=== PATIENT | female | born 1975 | race Caucasian/White ===

== ENCOUNTER 2016-10-14 14:39 | Outpatient (CLI) | payer OTHER ==
--- NOTE | 2016-10-14 15:17 | DIAGNOSTIC IMAGING REPORT ---
PROCEDURE: MG BILATERAL SCREENING W/CAD INDICATION: Screening. Baseline. Family history breast carcinoma (mother). TECHNIQUE: Bilateral CC and MLO digital views. COMPARISON: None. FINDINGS: Computer-aided detection applied. Mildly dense with a few dystrophic calcifications. IMPRESSION: 1. Negative mammogram. RESULT CODE: 1- Negative. A. A negative report should not delay biopsy if a dominant or clinically suspicious mass is present. 10-15% of cancers are not identified by x-ray. B. A negative report may reinforce clinical impression. C. Adenosis and dense breasts may obscure an underlying neoplasm. D. False positive reports average 6-10%. E.. A yearly screening mammogram is recommended. A reminder letter will be scheduled.
== END 2016-10-14 23:00 ==
LOC: MAM SRH 14:39
DX: Z12.31 Encounter for screening mammogram for malignant neoplasm of breast (principal); Z80.3 Family history of malignant neoplasm of breast

== ENCOUNTER 2016-11-24 13:49 | Outpatient (CLI) | payer OTHER ==
--- NOTE | 2016-11-24 14:28 | DIAGNOSTIC IMAGING REPORT ---
PROCEDURE: XR KNEE 4 VIEWS - LEFT INDICATION: LEFT HIP PX/LEFT KNEE PX TECHNIQUE: Four views. COMPARISON: None. FINDINGS: Chondrocalcinosis. Osteoarthritis with joint space narrowing and osteophyte formation. IMPRESSION: 1. Chondrocalcinosis. Osteoarthritis.
--- NOTE | 2016-11-24 14:29 | DIAGNOSTIC IMAGING REPORT ---
PROCEDURE: XR HIP 2VW W W/O AP PELVIS-LT INDICATION: LEFT HIP PX TECHNIQUE: AP view of the pelvis and hips with lateral view of the left hip. COMPARISON: None. FINDINGS: Left HIP: Osseous structures and joint spaces are normal. PELVIS: Osseous pelvis is normal. IMPRESSION: 1. Negative pelvis and left hip.
== END 2016-11-24 23:00 ==
LOC: XR SRH 13:49
DX: M25.552 Pain in left hip (principal); M11.262 Other chondrocalcinosis, left knee

== ENCOUNTER 2016-12-13 19:37 | Emergency (ER) | payer OTHER ==
--- NOTE | 2016-12-13 20:46 | DIAGNOSTIC IMAGING REPORT ---
PROCEDURE: XR CHEST 2 VIEW INDICATION: SHORTNESS OF BREATH TECHNIQUE: Two views. COMPARISON: None. FINDINGS: The cardiomediastinal contour is stable, within normal limits. The central vasculature is not congested. Asymmetric right hemidiaphragm elevation, chronic. Interval clearance of right upper and middle lobe opacities. The lungs are clear without focal consolidation, pleural effusion or pneumothorax. The visualized osseous structures are intact. IMPRESSION: 1. No evidence of acute cardiopulmonary disease. 2. Chronic minor right hemithorax volume loss and interval clearance of prior pneumonia.
--- NOTE | 2016-12-13 21:15 | ED NURSING NOTES ---
Clinical Report - Nurses [facility] [address] [place] [address] 12/13/2016 19:38 Patient: ASHISH VAZQUEZ V TRIAGE Triage time 19:41. Acuity: LEVEL 3. Chief Complaint: SHORTNESS OF BREATH and "ASTHMA ATTACK". Alert. --19:46 Kami Escobar R.N. 19:41 12/13/16. HR: 116. RR: 18. O2 saturation: 96% on room air. Temp: 99 F (oral). Perry-Billy pain scale: 10/22. --19:46 Kami Escobar R.N. 19:50 12/13/16. BP: 130/86. --19:50 Kami Escobar R.N. Weight: 170 kg stated. Height/Length: 69 inches Per Patient. BMI: 55.4. --19:45 Kami Escobar R.N. Medications Acetaminophen Oral 500 mg, 3x a day. Ibuprofen Oral 800 mg, 3x a day. Levothyroxine Sodium Oral 100 mcg, daily. Montelukast Sodium Oral 10 mg, daily. Omeprazole Oral 40 mg, daily. ProAir HFA Inhalation, as needed. Spironolactone Oral (Tablet 25 mg), daily. --19:43 Kami Escobar R.N. MetFORMIN HCl Oral (Tablet 1000 mg) 1 tablet, 2x a day. --19:43 Kami Escobar R.N. Allbuterol. --19:44 Kami Escobar R.N. Allergies Penicillins. --19:43 Kami Escobar R.N. History Arrived by private vehicle. Historian: patient. Accompanied by family. Primary physician (Araceli). Onset. (about 2 days ago). 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 PAST MEDICAL HX: Immunizations: status is unknown. Last normal menstrual period unknown. Uses an intrauterine device. SOCIAL HX: Smoker- current status unknown. Occasional alcohol use. No drug use. NUTRITIONAL RISK ASSESSMENT: The nutritional risk assessment revealed no deficiencies. FUNCTIONAL ASSESSMENT: Functional assessment: no impairments noted. --19:46 Kami Escobar R.N. PROBLEMS: Obesity. Pneumonia. Bronchitis. Foreign Body In Ear. Asthma. Thyroid Disease. Abscess. Lung Disease. --19:44 Kami Escobar R.N. ADDITIONAL SURGERIES: Adenoidectomy. Knee Surgery. Thyroid Surgery. Tonsillectomy. Tubal Ligation. --19:44 Kami Escobar R.N. Back Surgery. --19:44 Kami Escobar R.N. Interventions ID band on patient. To treatment room. --19:46 Kami Escobar R.N. PHYSICAL ASSESSMENT Ambulatory to room. Patient gowned. GENERAL / NEURO / PSYCH: Alert. Oriented X 4. Appears in no acute distress. HEENT: Mucous membranes are pink. RESPIRATORY: Mild respiratory distress. The patient can speak in full sentences. CVS: Capillary refill less than 2 seconds. SKIN: Skin is warm and dry. --19:47 Kami Escobar R.N. NURSING PROGRESS NOTES Head of bed elevated. Two patient identifiers checked. Call light placed in reach. Side rails up x 1. Bed placed in lowest position. Brakes of bed on. --19:47 Kami Escobar R.N. Patient ready for evaluation- chart flagged. --19:47 Kami Escobar R.N. ( RT called for assesment). --19:47 Kami Escobar R.N. 20:10 12/13/2016 Albuterol Neb TX Nebulizer 2 unit dose given. Given by the respiratory therapist. Allergies verified and confirmed 5 rights. (extensive teaching by RT on proper use of home nebulizer.). --20:18 Kami Escobar R.N. DISPOSITION / DISCHARGE 21:16 12/13/16. Condition at departure: improved and stable. No learning barriers present. Discharge instructions provided and reviewed with the patient. Reviewed medication(s) side effects, precautions, dosing and course information. Prescription(s) given to the patient. Patient verbalized understanding. Written instructions provided in Chinese. The patient was discharged home and accompanied by spouse. She left the Emergency Department ambulatory and via private vehicle. Spouse driving. --00:35 Kami Escobar R.N. 21:16 12/13/16. BP: 129/94. HR: 114. RR: 15 (regular and unlabored). O2 saturation: 96% on room air. Temp: deferred. Pain level now: 0/10. --00:35 Kami Escobar R.N. Locked/Released at 12/14/2016 0:36 by Kami Escobar R.N.
--- NOTE | 2016-12-13 21:15 | ED ORDER SUMMARY ---
..... Patient: ASHISH VAZQUEZ V OrderSheet [facility] VisitID: [id number] [place] [address] 41y, F Registration Date/Time: 12/13/2016 ORDER SHEET Weight: 170.0 kg (stated) Allergies: Penicillins GENERAL ORDERS: RT Evaluation Stat (19:53 12/13/2016 Simran R.NJuvencio per protocol) (19:53 Simran R.N.) Chest 2V Urgent (20:29 12/13/2016 Ana MARIA) (20:40 MCampbell) MEDICATION ORDERS: Albuterol Neb Tx 2 unit doses (NOW) (20:16 12/13/2016 Simran R.NJuvencio verbal order read back to Ana MARIA) (20:18 RCollaniyah R.N.) IV FLUIDS: ORDER SHEET NOTES: [Electronically signed by Kami Escobar R.N. (00:36 12/14/2016)] [Electronically signed by Cherie Kaye MD (04:52 12/24/2016)] [Electronically locked/signed by Kami Escobar R.N. (00:36 12/14/2016)]
--- NOTE | 2016-12-13 21:15 | ED ORDER SUMMARY ---
..... Patient: ASHISH VAZQUEZ V OrderSheet [facility] VisitID: [id number] [place] [address] 41y, F Registration Date/Time: 12/13/2016 ORDER SHEET Weight: 170.0 kg (stated) Allergies: Penicillins GENERAL ORDERS: RT Evaluation Stat (19:53 12/13/2016 Simran R.NJuvencio per protocol) (19:53 Simran R.N.) Chest 2V Urgent (20:29 12/13/2016 Ana MARIA) (20:40 MCampbell) MEDICATION ORDERS: Albuterol Neb Tx 2 unit doses (NOW) (20:16 12/13/2016 Simran R.NJuvencio verbal order read back to Ana MARIA) (20:18 RCollaniyah R.N.) IV FLUIDS: ORDER SHEET NOTES: [Electronically signed by Kami Escobar R.N. (00:36 12/14/2016)] [Electronically signed by Cherie Kaye MD (04:52 12/24/2016)] [Electronically locked/signed by Kami Escobar R.N. (00:36 12/14/2016)]
--- NOTE | 2016-12-13 21:15 | ED CLINICAL REPORT ---
Clinical Report - Physicians/Mid Levels [facility] [address] [place] [address] 12/13/2016 19:38 Patient: ASHISH VAZQUEZ V Time Seen: 19:42. Arrived- By private vehicle. Historian- patient. HISTORY OF PRESENT ILLNESS Chief Complaint: DYSPNEA and HISTORY OF ASTHMA. This started today and is still present. The dyspnea is described as moderate and is worsened by exertion and is improved by rest. The patient has had a mild dry cough. No sputum production, fever, sweating episodes or chills. No chest pain or discomfort, calf pain, foot swelling or anxiety. No dizziness, tingling, numbness or palpitations. The patient has had wheezing and dyspnea on exertion. Similar symptoms previously: Many times. Recent medical care: Not recently seen/assessed. REVIEW OF SYSTEMS The patient has not had weight loss. No muscle aches, eye irritation, sore throat, nasal discharge or sinus drainage. No nausea, vomiting, abdominal pain, diarrhea or black stools. No bloody stools, headache, fainting episodes, blurred vision or difficulty with urination. No skin rash, enlarged lymph nodes or joint pain. Denies current . All systems otherwise negative, except as recorded above. PAST HISTORY Problems: Obesity. Urinary Retention. Last Tetanus. Hearing Loss. Tetanus Status. Asthma. Thyroid Disease. Immunizations. LNMP - Last Normal Menstrual Period. Additional Surgeries: Adenoidectomy. Back Surgery. Knee Surgery. Thyroid Surgery. Tonsillectomy. Tubal Ligation. Medications: Allbuterol. MetFORMIN HCl Oral (Tablet 1000 mg) 1 tablet, 2x a day. Acetaminophen Oral 500 mg, 3x a day. Ibuprofen Oral 800 mg, 3x a day. Levothyroxine Sodium Oral 100 mcg, daily. Montelukast Sodium Oral 10 mg, daily. Omeprazole Oral 40 mg, daily. ProAir HFA Inhalation, as needed. Spironolactone Oral (Tablet 25 mg), daily. Allergies: Penicillins. SOCIAL HISTORY Smoker- current status unknown. Occasional alcohol use. No drug use. ADDITIONAL NOTES The nursing notes have been reviewed. PHYSICAL EXAM Vital Signs: 12/13/2016 19:50 BP: 130/86. 12/13/2016 19:41 HR: 116. RR: 18. O2 saturation: 96%. Temp: 99 F. Perry-Billy pain scale: 2/10. Have been reviewed. Appearance: Alert. No acute distress. (Pt is very conversant without difficulty.). Eyes: Pupils equal, round and reactive to light. Eyes normal inspection. ENT: Nose normal. Neck: Normal inspection. CVS: Normal heart rate and rhythm. Heart sounds normal. Pulses normal. Respiratory: No respiratory distress. Expiratory mild wheezes in the right and left lung. No decreased air movement or prolonged expiration. Abdomen: Soft and nontender. Obese. Back: Normal inspection. No CVA tenderness. Skin: Skin warm and dry. Normal skin color. No rash. Normal skin turgor. Extremities: Extremities exhibit normal ROM. No lower extremity edema. Neuro: Oriented X 3. No motor deficit. No sensory deficit. LABS, X-RAYS, AND EKG Chest X-ray: No acute disease. Normal lung markings present. Normal heart size. Mediastinum normal. Great vessels normal. Soft tissues normal. No infiltrate. No fracture. No bony lesion present. Views: PA and lateral. Technique: good. The X-rays were independently viewed by me and interpreted contemporaneously by me. Prior films were not available for comparison. Pulse Oximetry: 12/13/2016 19:41 O2 saturation: 96%. (FIO2 - room air). Interpretation: normal. PROGRESS AND PROCEDURES Patient counseled in person regarding the patient's stable condition, test results, diagnosis and need for follow-up. Concerns were addressed. Old medical records reviewed. Disposition: Discharged. Condition: stable and improved. CLINICAL IMPRESSION Acute exacerbation of COPD. Acute viral upper respiratory infection. INSTRUCTIONS (Your x-ray looks good--no pneumonia.). Warnings: GENERAL WARNINGS: Return or contact your physician immediately if your condition worsens or changes unexpectedly, if not improving as expected, or if other problems arise. Your Current Medications: CONTINUE TAKING THE FOLLOWING MEDICATIONS: Acetaminophen Oral : 500 mg 3x a day. Allbuterol*. Ibuprofen Oral : 800 mg 3x a day. Levothyroxine Sodium Oral : 100 mcg daily. MetFORMIN HCl Oral : Tablet 1000 mg, 1 tablet 2x a day. Montelukast Sodium Oral : 10 mg daily. Omeprazole Oral : 40 mg daily. ProAir HFA Inhalation : prn. Spironolactone Oral : Tablet 25 mg, daily. Prescription Medications: Prednisone 20 mg: take 3 orally every day for 5 days. Dispense sufficient quantity. No refills. Follow-up: Follow up with your doctor in five days if not better. Understanding of the discharge instructions verbalized by patient. (Electronically signed by Cherie Kaye MD 12/24/2016 4:52)
--- NOTE | 2016-12-13 21:15 | ED NURSING NOTES ---
Clinical Report - Nurses [facility] [address] [place] [address] 12/13/2016 19:38 Patient: ASHISH VAZQUEZ V TRIAGE Triage time 19:41. Acuity: LEVEL 3. Chief Complaint: SHORTNESS OF BREATH and "ASTHMA ATTACK". Alert. --19:46 Kami Escobar R.N. 19:41 12/13/16. HR: 116. RR: 18. O2 saturation: 96% on room air. Temp: 99 F (oral). Perry-Billy pain scale: 10/22. --19:46 Kami Escobar R.N. 19:50 12/13/16. BP: 130/86. --19:50 Kami Escobar R.N. Weight: 170 kg stated. Height/Length: 69 inches Per Patient. BMI: 55.4. --19:45 Kami Escobar R.N. Medications Acetaminophen Oral 500 mg, 3x a day. Ibuprofen Oral 800 mg, 3x a day. Levothyroxine Sodium Oral 100 mcg, daily. Montelukast Sodium Oral 10 mg, daily. Omeprazole Oral 40 mg, daily. ProAir HFA Inhalation, as needed. Spironolactone Oral (Tablet 25 mg), daily. --19:43 Kami Escobar R.N. MetFORMIN HCl Oral (Tablet 1000 mg) 1 tablet, 2x a day. --19:43 Kami Escobar R.N. Allbuterol. --19:44 Kami Escobar R.N. Allergies Penicillins. --19:43 Kami Escobar R.N. History Arrived by private vehicle. Historian: patient. Accompanied by family. Primary physician (Araceli). Onset. (about 2 days ago). 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 PAST MEDICAL HX: Immunizations: status is unknown. Last normal menstrual period unknown. Uses an intrauterine device. SOCIAL HX: Smoker- current status unknown. Occasional alcohol use. No drug use. NUTRITIONAL RISK ASSESSMENT: The nutritional risk assessment revealed no deficiencies. FUNCTIONAL ASSESSMENT: Functional assessment: no impairments noted. --19:46 Kami Escobar R.N. PROBLEMS: Obesity. Pneumonia. Bronchitis. Foreign Body In Ear. Asthma. Thyroid Disease. Abscess. Lung Disease. --19:44 Kami Escobar R.N. ADDITIONAL SURGERIES: Adenoidectomy. Knee Surgery. Thyroid Surgery. Tonsillectomy. Tubal Ligation. --19:44 Kami Escobar R.N. Back Surgery. --19:44 Kami Escobar R.N. Interventions ID band on patient. To treatment room. --19:46 Kami Escobar R.N. PHYSICAL ASSESSMENT Ambulatory to room. Patient gowned. GENERAL / NEURO / PSYCH: Alert. Oriented X 4. Appears in no acute distress. HEENT: Mucous membranes are pink. RESPIRATORY: Mild respiratory distress. The patient can speak in full sentences. CVS: Capillary refill less than 2 seconds. SKIN: Skin is warm and dry. --19:47 Kami Escobar R.N. NURSING PROGRESS NOTES Head of bed elevated. Two patient identifiers checked. Call light placed in reach. Side rails up x 1. Bed placed in lowest position. Brakes of bed on. --19:47 Kami Escobar R.N. Patient ready for evaluation- chart flagged. --19:47 Kami Escobar R.N. ( RT called for assesment). --19:47 Kami Escobar R.N. 20:10 12/13/2016 Albuterol Neb TX Nebulizer 2 unit dose given. Given by the respiratory therapist. Allergies verified and confirmed 5 rights. (extensive teaching by RT on proper use of home nebulizer.). --20:18 Kami Escobar R.N. DISPOSITION / DISCHARGE 21:16 12/13/16. Condition at departure: improved and stable. No learning barriers present. Discharge instructions provided and reviewed with the patient. Reviewed medication(s) side effects, precautions, dosing and course information. Prescription(s) given to the patient. Patient verbalized understanding. Written instructions provided in Persian. The patient was discharged home and accompanied by spouse. She left the Emergency Department ambulatory and via private vehicle. Spouse driving. --00:35 Kami Escobar R.N. 21:16 12/13/16. BP: 129/94. HR: 114. RR: 15 (regular and unlabored). O2 saturation: 96% on room air. Temp: deferred. Pain level now: 0/10. --00:35 Kami Escobar R.N. Locked/Released at 12/14/2016 0:36 by Kami Escobar R.N.
--- NOTE | 2016-12-24 04:52 | ED MAR SUMMARY ---
..... Medication Administration Record [facility] [address] [place] [address] Patient: ASHISH VAZQUEZ V Visit ID: [id number] 41y, F Weight: 170.0 kg Height/Length: 69 in BMI: 55.4 ALLERGIES: Penicillins Given 20:10 12/13/2016 Kami Escobar R.N. Medication Administered: ALBUTEROL [NEB TX], Dose: 2 unit dose Nebulizer Neb TX. Medication Ordered: Albuterol Neb Tx 2 unit doses (NOW).
--- NOTE | 2016-12-24 04:52 | ED MED RECONCILIATION SUMMARY ---
Patient: ASHISH VAZQUEZ V Medication Reconciliation Report [facility] VisitID: [id number] [place] [address] 41y, F Registration Date/Time: 12/13/2016 Weight: 170.0 kg Height/Length: 69 in. BMI: 55.4 ALLERGIES: Penicillins The patient's Home Medications are listed below: CONTINUE TAKING THE FOLLOWING MEDICATIONS: Acetaminophen Oral 500 mg, 3x a day Allbuterol Ibuprofen Oral 800 mg, 3x a day Levothyroxine Sodium Oral 100 mcg, daily MetFORMIN HCl Oral (1000 mg) 1 tablet, 2x a day Montelukast Sodium Oral 10 mg, daily Omeprazole Oral 40 mg, daily ProAir HFA Inhalation Spironolactone Oral (25 mg), daily The source(s) of the original Home Medication information: Not obtained. The following Medications were given to the patient in the Emergency Department: Albuterol [Neb Tx] Neb TX 2 unit dose, administered: 12/13/2016 8:10:00 PM The following Medications were prescribed to the patient: Prednisone 20 mg: take 3 orally every day for 5 days. Dispense sufficient quantity. No refills. -- Cherie Kaye MD
--- NOTE | 2016-12-24 04:52 | ED DISCHARGE INSTRUCTIONS ---
Patient: ASHISH VAZQUEZ V General Instructions [facility] VisitID: [id number] [place] [address] 41y, F Registration Date/Time: 12/13/2016 Acute exacerbation of COPD. Acute viral upper respiratory infection. INSTRUCTIONS (Your x-ray looks good--no pneumonia.). Warnings: GENERAL WARNINGS: Return or contact your physician immediately if your condition worsens or changes unexpectedly, if not improving as expected, or if other problems arise. Your Current Medications: CONTINUE TAKING THE FOLLOWING MEDICATIONS: Acetaminophen Oral : 500 mg 3x a day. Allbuterol*. Ibuprofen Oral : 800 mg 3x a day. Levothyroxine Sodium Oral : 100 mcg daily. MetFORMIN HCl Oral : Tablet 1000 mg, 1 tablet 2x a day. Montelukast Sodium Oral : 10 mg daily. Omeprazole Oral : 40 mg daily. ProAir HFA Inhalation : prn. Spironolactone Oral : Tablet 25 mg, daily. Prescription Medications: Prednisone 20 mg: take 3 orally every day for 5 days. Dispense sufficient quantity. No refills. Follow-up: Follow up with your doctor in five days if not better. Understanding of the discharge instructions verbalized by patient. ADDITIONAL INFORMATION COPD Flare Both emphysema and chronic bronchitis are forms of chronic obstructive pulmonary disease (COPD). It is most often caused by many years of smoking tobacco. Many things can make your lung disease suddenly get worse. These causes include the common cold, pneumonia, acute bronchitis, missing doses of your regular breathing medicines, or being around smoke, dust, or other air pollutants. A COPD flare may last 7 to 14 days. Your doctor may prescribe medicineto relax your airways and prevent wheezing. Your doctor may also prescribe antibiotics if he or she thinks you havea bacterial infection. Prednisone can helpease inflammation in a severe attack. Home care Here are things you can do at home: Drink lots of water or other fluids (at least 10 glasses a day) during an attack. This will loosen lung secretions and make it easier to breathe. If you have heart or kidney disease, check with your doctor before you drink extra amounts of fluids. Take prescribed medicine exactly at the times advised. If you have a hand-held inhaler or aerosol breathing medicine, don't use it more than once every 4 hours, unless your doctor tells you to. If you were givenan antibiotic or prednisone, take all of the medicine even if you are feeling better after a few days. Don't smoke. Avoid being aroundthe smoke of others. If you were given an inhaler, use it exactly as directed. If you need to use it more often than prescribed, your condition may be getting worse. Call your doctor. Follow-up care Follow up with your health care provider.If you are 65 or older or have chronic asthma or COPD, you should get a single dose of the pneumococcal vaccine and aflu shot each year. You may need a second dose of the pneumococcal vaccine if you had the first dose at a younger age. Your health care provider will let you know if you need a second dose. For all other people, the usual dose for the pneumococcal vaccine is 1 or 2 shots. Yourprovider can discuss this with you. When to seek medical care Get prompt medical attention ifany of these occur: Increased wheezing or shortness of breath Need to use your inhalers more often than usual without relief Fever of 100.4F(38C) or higher, or as directed by your health care provider Coughing up lots of dark-colored or bloody sputum (mucus) Chest pain with each breath You do not start to improve within 24 hours Viral Respiratory Illness [Adult] You have an Upper Respiratory Illness (URI) caused by a virus. This illness is contagious during the first few days. It is spread through the air by coughing and sneezing or by direct contact (touching the sick person and then touching your own eyes, nose or mouth). Most viral illnesses go away within 7-10 days with rest and simple home remedies. Sometimes, the illness may last for several weeks. Antibiotics will not kill a virus and are generally not prescribed for this condition. Home Care: 1) If symptoms are severe, rest at home for the first 2-3 days. When you resume activity, don't let yourself get too tired. 2) Avoid being exposed to cigarette smoke (yours or others). 3) Tylenol (acetaminophen) or ibuprofen (Advil, Motrin) will help fever, muscle aching and headache. (Persons under 18 with fever should not take aspirin since this may cause liver damage.) 4) Your appetite may be poor, so a light diet is fine. Avoid dehydration by drinking 6-8 glasses of fluids per day (water, soft drinks, juices, tea, soup). Extra fluids will help loosen secretions in the nose and lungs. 5) Mfmh-zeh-idklkis cold medicines will not shorten the length of time youre sick, but they may be helpful for the following symptoms: cough (Robitussin DM); sore throat (Chloraseptic lozenges or spray); nasal and sinus congestion (Actifed, Sudafed, Chlortrimeton). Follow Up with your doctor or as advised if you dont improve over the next week. Get Prompt Medical Attention if any of the following occur: -- Cough with lots of colored sputum (mucus) or blood in your sputum -- Chest pain, shortness of breath, wheezing or have trouble breathing -- Severe headache; face, neck or ear pain -- Fever over 100.4 F (38.0 C) for more than three days -- You cant swallow due to throat pain You have been given the following additional information: COPD Flare Uri, Viral, No Abx (Adult) (Electronically signed by Cherie Kaye MD 12/24/2016 4:52)
--- NOTE | 2016-12-24 04:52 | ED MED RECONCILIATION SUMMARY ---
Patient: ASHISH VAZQUEZ V Medication Reconciliation Report [facility] VisitID: [id number] [place] [address] 41y, F Registration Date/Time: 12/13/2016 Weight: 170.0 kg Height/Length: 69 in. BMI: 55.4 ALLERGIES: Penicillins The patient's Home Medications are listed below: CONTINUE TAKING THE FOLLOWING MEDICATIONS: Acetaminophen Oral 500 mg, 3x a day Allbuterol Ibuprofen Oral 800 mg, 3x a day Levothyroxine Sodium Oral 100 mcg, daily MetFORMIN HCl Oral (1000 mg) 1 tablet, 2x a day Montelukast Sodium Oral 10 mg, daily Omeprazole Oral 40 mg, daily ProAir HFA Inhalation Spironolactone Oral (25 mg), daily The source(s) of the original Home Medication information: Not obtained. The following Medications were given to the patient in the Emergency Department: Albuterol [Neb Tx] Neb TX 2 unit dose, administered: 12/13/2016 8:10:00 PM The following Medications were prescribed to the patient: Prednisone 20 mg: take 3 orally every day for 5 days. Dispense sufficient quantity. No refills. -- Cherie Kaye MD
--- NOTE | 2016-12-24 04:52 | ED MAR SUMMARY ---
..... Medication Administration Record [facility] [address] [place] [address] Patient: ASHISH VAZQUEZ V Visit ID: [id number] 41y, F Weight: 170.0 kg Height/Length: 69 in BMI: 55.4 ALLERGIES: Penicillins Given 20:10 12/13/2016 Kami Escobar R.N. Medication Administered: ALBUTEROL [NEB TX], Dose: 2 unit dose Nebulizer Neb TX. Medication Ordered: Albuterol Neb Tx 2 unit doses (NOW).
== END 2016-12-13 21:16 | disposition home or self-care (01) ==
LOC: ED SRH 19:37
DX: J44.0 Chronic obstructive pulmonary disease with (acute) lower respiratory infection (principal); J06.9 Acute upper respiratory infection, unspecified; E07.9 Disorder of thyroid, unspecified; Z79.51 Long term (current) use of inhaled steroids; Z79.84 Long term (current) use of oral hypoglycemic drugs; Z79.1 Long term (current) use of non-steroidal anti-inflammatories (NSAID); Z79.899 Other long term (current) drug therapy; Z88.0 Allergy status to penicillin